=== PATIENT | female | born 1950 | race Asian ===

== ENCOUNTER 2016-11-17 11:22 | Emergency (ER) | payer OTHER ==
[~2016-11-17] VITALS: Ht 152.4 cm; Wt 56.0 kg
[2016-11-17 11:25] VITALS: Ht 152.4 cm; Wt 56.0 kg
[2016-11-17] MEDS ORDERED: SOD CHLORIDE 0.9% 500 ML IV STA (15:29)
[2016-11-17] MEDS ORDERED: ACETAMINOPHEN 325 MG TAB PO ONE (16:00)
[2016-11-17] MEDS ORDERED: LISI40TA9 PO (16:15)
[2016-11-17] MEDS ORDERED: ASPI-664 PO (16:15)
[2016-11-17 16:16] LABS: ADD SCAN DIFF NO
[2016-11-17] MEDS ORDERED: ATOR40TA68 PO (16:16)
[2016-11-17] MEDS ORDERED: OMEG1CAP31 PO (16:16)
[2016-11-17] MEDS ORDERED: CALC-143 PO (16:17)
--- NOTE | 2016-11-17 16:36 | RADRPT ---
PROCEDURE: CT Brain without contrast. CLINICAL INDICATION: Pain, headache TECHNIQUE: Routine CT scan of the brain was performed on a high resolution multi detector scanner without intravenous contrast. One or more of the following dose reduction techniques were used: Auto mated exposure control; Adjustment of the mA and/or kV according to patient size; Use of iterative r econstruction technique. CTDI = 44 mGy. DLP = 630 mGy-cm. COMPARISON: No prior relevant examinations are available for comparison. FINDINGS: Hemorrhage: No evidence of intracranial hemorrhage. Acute ischemic changes: No evidence of acute ischemic changes. Mass effect/Midline shift: None. Parenchymal volume: Within normal limits for age. Ventricular system: Concordant with parenchymal volume. Chronic changes: There are multiple areas of low attenuation change within the supratentorial white matter most compatible with moderate chronic microvascular ischemic changes. Atherosclerotic calcifications of the cavernous portions of both internal carotid arteries are prese nt. Extracranial soft tissues: Unremarkable. Calvarium: No fractures. Paranasal sinuses: Visualized paranasal sinuses are clear. Mastoid air cells: Visualized mastoid air cells are clear. IMPRESSION: No acute intracranial abnormalities. Moderate chronic-appearing microvascular ischemic changes of the supratentorial white matter. RPTAT: AADD .Anselmo Christian MD, Date Time Electronically viewed and signed by .Anselmo Christian MD, on 11/17/2016 16:35 .B/
[2016-11-17 16:54] LABS: CHLORIDE 104 mmol/L (97-110); POTASSIUM 4.2 mmol/L (3.5-5.1); SODIUM 141 mmol/L (135-144)
[2016-11-17 16:56] LABS: INR 0.94; PROTIME 12.6 Sec (12.2-14.2)
[2016-11-17 16:57] LABS: ANION GAP 15 (8-16); CARBON DIOXIDE 26 mmol/L (21-31); CREATININE 0.79 mg/dl (0.44-1.00); PARTIAL THROMBOPLASTIN TIME 26.9 Sec (25.0-35.0)
[2016-11-17 16:58] LABS: BLOOD UREA NITROGEN 15 mg/dl (7-20); CALCIUM 9.3 mg/dl (8.4-10.2); GLUCOSE 136 mg/dl (70-220)
[2016-11-17 17:07] LABS: BASOPHILS % 0.3 % (0.0-2.0); EOSINOPHILS # 0.1 10^3/ul (0.0-0.5); EOSINOPHILS % 0.6 % (0.0-7.0); HEMATOCRIT 41.6 % (37.0-47.0); HEMOGLOBIN 13.6 g/dl (12.0-16.0); LYMPHOCYTES # 2.6 10^3/ul (0.8-2.9); LYMPHOCYTES % 29.3 % (15.0-51.0); MEAN CORPUSCULAR HEMOGLOBIN 33.1 pg (29.0-33.0); MEAN CORPUSCULAR HGB CONC 32.7 g/dl (32.0-37.0); MEAN CORPUSCULAR VOLUME 101.2 fl (82.0-101.0); MEAN PLATELET VOLUME 11.3 fl (7.4-10.4); MONOCYTE # 0.4 10^3/ul (0.3-0.9); MONOCYTES % 4.3 % (0.0-11.0); NEUTROPHIL # 5.8 10^3/ul (1.6-7.5); NEUTROPHILS % 65.4 % (39.0-77.0); PLATELET COUNT 173 10^3/UL (140-415); RED BLOOD COUNT 4.11 10^6/ul (4.20-5.40); RED CELL DISTRIBUTION WIDTH 12.4 % (11.5-14.5); WHITE BLOOD COUNT 8.8 10^3/ul (4.8-10.8)
[2016-11-17 17:19] LABS: TROPONIN-I < 0.012 ng/ml (0.00-0.12)
[2016-11-17] MEDS ORDERED: LISINOPRIL 20 MG TAB PO ONE (17:30)
[2016-11-17 17:55] LABS: ADD UMIC YES; URINE BILIRUBIN (Dip) NEGATIVE (NEGATIVE); URINE BLOOD (Dip) 1+ (NEGATIVE); URINE COLOR LT. YELLOW (YELLOW); URINE GLUCOSE (Dip) NEGATIVE (NEGATIVE); URINE KETONES (Dip) NEGATIVE (NEGATIVE); URINE LEUKOCYTE ESTERASE (Dip) NEGATIVE (NEGATIVE); URINE NITRITE (Dip) NEGATIVE (NEGATIVE); URINE TOTAL PROTEIN (Dip) NEGATIVE (NEGATIVE); URINE UROBILINOGEN (Dip) 0.2 E.U./dL (0.1-1.0)
[2016-11-17 18:04] LABS: URINE RBCS 0-2 /HPF (0)
[2016-11-17 18:10] VITALS: BP 158/87; PULSE 94; RESP 18
--- NOTE | 2016-11-17 23:56 | ERD ---
ER Documentation Chief Complaint Date/Time DATE: 11/17/16 TIME: 23:52 Chief Complaint dizziness and headache this morning HPI This 66-year-old female presents emergency room because she did have some dizziness described as lightheadedness this morning and does have a mild generalized headache since that time. She checked her blood pressure home and it was high to systolic of 160. She stated that she thinks she may forgotten her wedding lisinopril 40 mg. She has no chest pain shortness of breath nausea or vomiting currently does not feel the dizziness. ROS All systems reviewed and are negative except as per history of present illness. Medications Home Meds Reported Medications Calcium Citrate/Vitamin D (Citracal-Vitamin D 200 MG-250) 1 Each Tablet, 1 EACH PO BID, TAB 11/17/16 Babbitt-3/Dha/Epa/Fish Oil (FISH OIL 1,000 MG SOFTGEL) 1 Each Capsule, 1 EACH PO, CAP 11/17/16 Atorvastatin* (Atorvastatin*) 40 Mg Tablet, 40 MG PO QHS, #30 TAB 11/17/16 Lisinopril* (Lisinopril*) 40 Mg Tablet, 40 MG PO DAILY, #30 TAB 11/17/16 Aspirin* (Aspirin* EC) 81 Mg Tablet.dr, 81 MG PO DAILY, TAB 11/17/16 Allergies Allergies: Coded Allergies: No Known Allergy (Unverified , 11/17/16) PMhx/Soc History of Surgery: Yes (c/s) Anesthesia Reaction: No Hx Neurological Disorder: No Hx Respiratory Disorders: No Hx Cardiac Disorders: Yes (htn) Hx Psychiatric Problems: No Hx Miscellaneous Medical Probl: No Hx Alcohol Use: No Hx Substance Use: No Hx Tobacco Use: No Smoking Status: Never smoker Physical Exam Vitals Vital Signs Date Time Temp Pulse Resp B/P Pulse Ox O2 Delivery O2 Flow Rate FiO2 11/17/16 18:10 94 18 158/87 98 Room Air 11/17/16 17:31 88 18 138/84 99 Room Air 11/17/16 15:40 91 18 175/93 98 Room Air 11/17/16 11:25 98.9 98 18 194/86 97 Physical Exam Const: [] No distress Head: Atraumatic Eyes: Normal Conjunctiva, EOMI, PERRLA ENT: Normal External Ears, Nose and Mouth. Neck: Full range of motion..~ No meningismus. Resp: Clear to auscultation bilaterally Cardio: Regular rate and rhythm, no murmurs Abd: Soft, non tender, non distended. Normal bowel sounds Skin: No petechiae or rashes Back: No midline or flank tenderness Ext: No cyanosis, or edema Neur: Awake and alert and oriented 3, no focal deficits cranial nerves II through XII intact, no cerebellar deficits finger to nose, normal gait Psych: Normal Mood and Affect Result Diagram: 11/17/16 1600 11/17/16 1620 Results 24 hrs Laboratory Tests Test 11/17/16 16:00 11/17/16 16:20 11/17/16 17:05 White Blood Count 8.810^3/ul Red Blood Count 4.1110^6/ul Hemoglobin 13.6g/dl Hematocrit 41.6% Mean Corpuscular Volume 101.2fl Mean Corpuscular Hemoglobin 33.1pg Mean Corpuscular Hemoglobin Concent 32.7g/dl Red Cell Distribution Width 12.4% Platelet Count 20773^3/UL Mean Platelet Volume 11.3fl Neutrophils % 65.4% Lymphocytes % 29.3% Monocytes % 4.3% Eosinophils % 0.6% Basophils % 0.3% Nucleated Red Blood Cells % 0.0/100WBC Neutrophils # 5.810^3/ul Lymphocytes # 2.610^3/ul Monocytes # 0.410^3/ul Eosinophils # 0.110^3/ul Basophils # 0.010^3/ul Nucleated Red Blood Cells # 0.010^3/ul Prothrombin Time 12.6Sec Prothrombin Time Ratio 1.0 INR International Normalized Ratio 0.94 Activated Partial Thromboplast Time 26.9Sec Sodium Level 141mmol/L Potassium Level 4.2mmol/L Chloride Level 104mmol/L Carbon Dioxide Level 26mmol/L Anion Gap 15 Blood Urea Nitrogen 15mg/dl Creatinine 0.79mg/dl Glucose Level 136mg/dl Calcium Level 9.3mg/dl Troponin I < 0.012ng/ml Urine Color LT. YELLOW Urine Clarity CLEAR Urine pH 5.5 Urine Specific [place] 1.010 Urine Ketones NEGATIVE Urine Nitrite NEGATIVE Urine Bilirubin NEGATIVE Urine Urobilinogen 0.2 E.U./dL Urine Leukocyte Esterase NEGATIVE Urine Microscopic RBC 0-2/HPF Urine Microscopic WBC 0-2/HPF Urine Hemoglobin 1+ Urine Glucose NEGATIVE% Urine Total Protein NEGATIVE Current Medications Medications (Trade) Dose Ordered Sig/Katelyn Route PRN Reason Start Time Stop Time Status Last Admin Dose Admin Sodium Chloride (NS) 500 ml @ 500 mls/hr Q1H STAT IV 11/17/16 15:29 11/17/16 16:28 DC 11/17/16 15:57 Acetaminophen (Tylenol Tab) 650 mg ONCE ONCE PO 11/17/16 16:00 11/17/16 16:01 DC 11/17/16 15:39 Lisinopril (Zestril) 40 mg ONCE ONCE PO 11/17/16 17:30 11/17/16 17:31 DC 11/17/16 17:40 Procedures/MDM Elderly female with resolved dizziness and mild headache with hypertension not currently controlled secondary to missing morning dose of medication. Glucose performed to look for other emergent causes including cardiac workup and head CT. These are all negative for acute process. Patient's blood pressure reduced to safe levels without treatment. Patient was given the lisinopril 40 g That she missed this morning. She also given Tylenol. Blood pressure reduction and Tylenol administration patient said that she felt normal no longer had a headache. No signs of ischemia with troponin value her EKG. Admitted discharge her with primary care follow-up in the next couple of days as well as return precautions to the emergency room. Also instructed her to keep a blood pressure diary to be evaluated by her primary doctor. CT head interpretation: No acute process, I see no hemorrhage, no mass effect no midline shift, no skull fracture EKG interpretation: Sinus origin of rhythm without ST-T wave changes concerning for acute ischemia, normal intervals Jeremiah monitor interpretation: Normal sinus rhythm without arrhythmia. Departure Diagnosis: Primary Impression: Uncontrolled hypertension Additional Impressions: Dizziness Headache Condition: Stable Patient Instructions: Self-Care for Headaches, Dizziness, Unk Cause, Hypertension, Established, Out Of Control Additional Instructions: Call your primary care doctor TOMORROW for an appointment during the next 1-2 days.See the doctor sooner or return here if your condition worsens before your appointment time. RADHA ALMONTE DO Nov 17, 2016 23:56
== END 2016-11-17 18:11 | disposition home or self-care (01) ==
LOC: E/R 11:22
DX: I10 Essential (primary) hypertension (principal); R51 Headache; R40.2142 Coma scale, eyes open, spontaneous, at arrival to emergency department; R40.2252 Coma scale, best verbal response, oriented, at arrival to emergency department; R40.2362 Coma scale, best motor response, obeys commands, at arrival to emergency department; Z79.82 Long term (current) use of aspirin
CPT/HCPCS: 36415; 70450; 80048; 81001; 84484; 85025; 85610; 85730; 93005; 99285; J7040; 81003